=== PATIENT | female | born 1980 | race Caucasian/White ===

== ENCOUNTER 2021-12-20 06:16 | Day surgery (SDC) | payer BC ==
[~2021-12-20] VITALS: Ht 162.6 cm; Wt 68.0 kg
[2021-12-20] MEDS ORDERED: ONDANSETRON HCL 4 MG/2 ML VIAL ONE (08:26)
[2021-12-20] MEDS ORDERED: PROPOFOL 200MG/ 20ML VIAL (DIPRIVAN) IV ONE (08:26)
[2021-12-20] MEDS ORDERED: SEVOFLURANE 15 MIN GAS INH ONE (08:26)
[2021-12-20] MEDS ORDERED: OFLOXACIN 0.3%, 5 ML EAR DROPS ONE (08:26)
[2021-12-20] MEDS ORDERED: LR 1,000 ML IV.SOLN IV ONE (08:26)
[2021-12-20] MEDS ORDERED: NS IRRIG SOLN 1000 ML IR ONE (08:26)
[2021-12-20] MEDS ORDERED: KETOROLAC TROMETHAMINE 30 MG VIAL IVP PRN (09:00)
[2021-12-20] MEDS ORDERED: ONDANSETRON HCL 4 MG/2 ML VIAL IVP PRN (09:00)
[2021-12-20] MEDS ORDERED: HYDROmorphone 1 MG/ML INJ. CARTRIDGE IVP PRN (09:00)
[2021-12-20] MEDS ORDERED: IBUPROFEN 600 MG TABLET PO ONE (09:30)
[2021-12-20] MEDS ORDERED: ACETAMINOPHEN 500 MG TABLET PO PRN (09:45)
[2021-12-20 14:09] VITALS: BP_SYST 113
== END 2021-12-20 11:00 | disposition home or self-care (01) ==
LOC: SDS 06:16 → SMU 06:29 → SDS 11:00
PROVIDERS: ATTEND Otolaryngology
DX: H65.493 Other chronic nonsuppurative otitis media, bilateral (principal); H90.2 Conductive hearing loss, unspecified; H69.93 Unspecified Eustachian tube disorder, bilateral; Z91.040 Latex allergy status; Z79.899 Other long term (current) drug therapy; Z20.822 Contact with and (suspected) exposure to COVID-19
CPT/HCPCS: 36415; 69436; 87426; J2405; J2704; J7120; L8699

== ENCOUNTER 2023-09-04 06:20 | Day surgery (SDC) | payer BC ==
[~2023-09-04] VITALS: Ht 162.6 cm; Wt 70.3 kg
[~2023-09-04 06:20] MED LIST: BENZ1LOZ73 PO; HYDR-3927 PO
[2023-09-04 06:59] LABS: HCG,QUAL RESULT NEGATIVE (NEGATIVE)
[2023-09-04] MEDS ORDERED: fentaNYL CITRATE/PF 100 MCG/2 ML AMP ONE (08:21)
[2023-09-04] MEDS ORDERED: PROPOFOL 200MG/ 20ML VIAL (DIPRIVAN) IV ONE (08:21)
[2023-09-04] MEDS ORDERED: ONDANSETRON HCL 4 MG/2 ML VIAL ONE (08:21)
[2023-09-04] MEDS ORDERED: LIDOCAINE/EPI 1% 1:100000 20 ML VIAL ONE (08:21)
[2023-09-04] MEDS ORDERED: DEXAMETHASONE SOD PHOSPHATE 4 MG/ML VIAL ONE (08:21)
[2023-09-04] MEDS ORDERED: MIDAZOLAM HCL/PF 2 MG/2 ML SYRINGE ONE (08:21)
[2023-09-04] MEDS ORDERED: SEVOFLURANE 15 MIN GAS INH ONE (08:21)
[2023-09-04] MEDS ORDERED: OXYMETAZOLINE HCL 0.05% NASAL SPRAY NS ONE (08:21)
[2023-09-04] MEDS ORDERED: NS 1000 ML IV.SOLN IV ONE (08:21)
[2023-09-04] MEDS ORDERED: KETOROLAC TROMETHAMINE 30 MG VIAL ONE (08:21)
[2023-09-04] MEDS ORDERED: SUCCINYLCHOLINE CHLORIDE 20 MG/ML(QUELICIN) ONE (08:21)
[2023-09-04 08:34] VITALS: O2SAT 98
[2023-09-04] MEDS ORDERED: METOCLOPRAMIDE HCL 10 MG/2 ML VIAL IVP PRN (09:00)
[2023-09-04] MEDS ORDERED: ONDANSETRON HCL 4 MG/2 ML VIAL IVP PRN (09:00)
[2023-09-04] MEDS ORDERED: IBUPROFEN 600 MG TABLET PO ONE (09:00)
[2023-09-04] MEDS ORDERED: HYDROmorphone 1 MG/ML INJ. CARTRIDGE IVP PRN (09:00)
[2023-09-04 11:24] VITALS: BP_SYST 109; PULSE 85; RESP 18; TEMP 97.8
== END 2023-09-04 11:16 | disposition home or self-care (01) ==
LOC: SDS 06:20 → SMU 06:22 → SDS 11:16
PROVIDERS: ATTEND Otolaryngology
DX: H69.83 Other specified disorders of Eustachian tube, bilateral (principal); H65.493 Other chronic nonsuppurative otitis media, bilateral; J32.8 Other chronic sinusitis; Z91.040 Latex allergy status; Z91.048 Other nonmedicinal substance allergy status; Z79.899 Other long term (current) drug therapy
CPT/HCPCS: 69706; 69436; 84703; 87081; J1100; J1885; J3465; J2405; J2704; J0330; J3010; J7030; L8699